=== PATIENT | female | born 1975 | race African-American/Black ===

== ENCOUNTER 2017-08-17 05:58 | Emergency (ER) | payer OTHER ==
[~2017-08-17] VITALS: Ht 157.5 cm; Wt 75.0 kg
[~2017-08-17 05:58] MED LIST: DIPH2%T PO; MACR100C PO; PYRI200T4 PO
[2017-08-17 06:01] VITALS: BP 156/76; PULSE 84; RESP 18; TEMP 97.7; O2SAT 100
[2017-08-17] MEDS ORDERED: SODIUM CHLOR 0.9% 1000 ML INJ 1,000 ML IV ONE (06:15)
[2017-08-17] MEDS ORDERED: SODIUM CHLORIDE 0.9% FLUSH 10 ML FLUSH IVF PRN (06:15)
--- NOTE | 2017-08-17 06:19 | PD ---
HPI Chief Complaint: Chest Pain Time Seen by Provider: 06:05 Travel History International Travel<30 days: No Contact w/Intl Traveler<30days: No Traveled to known affect area: No History of Present Illness HPI 42-year-old female arrives with complaints of chest pain. The location is left chest. There is radiation to the left shoulder. Patient describes chest discomfort as a constant tightness. Occasionally there is a pin like discomfort in the left chest. There is no exertional component. There is no pleuritic component. She has no history of hypertension hyperlipidemia or diabetes. There is no family history coronary artery disease. The patient does not smoke tobacco or drink alcohol. Patient has mild pain in the ED. The patient works nights and just finished her shift (time of dictation approximately 6:00). PFSH Past Medical History Asthma: Yes Hypertension: Yes (PI) ?: Not : 2 Para: 1 Past Surgical History Section: Yes Social History Alcohol Use: No Tobacco Use: No Substance Use: No Allergies-Medications (Allergen,Severity, Reaction): Coded Allergies: aspirin (Unverified Allergy, Severe, HIVES-WHEEZING, 08/17/17) ibuprofen (Unverified Allergy, Severe, HIVES, 08/17/17) monosodium glutamate (Unverified Allergy, Severe, HIVES AND SWELLING, 08/17) naproxen (Unverified Allergy, Severe, Hives, 08/17/17) Reported Meds & Prescriptions Reported Meds & Active Scripts Active Pyridium (Phenazopyridine HCl) 200 Mg Tab 200 Mg PO Q8 PRN Macrobid (Nitrofurantoin Macrocrystals) 100 Mg Cap 100 Mg PO BID 7 Days Reported Benadryl (Diphenhydramine HCl) 25 Mg Cap 25 Mg PO Q4HPRN Review of Systems Except as stated in HPI: all other systems reviewed are Neg General / Constitutional: No: Fever Physical Exam Narrative GENERAL: 42-year-old female pleasant well-nourished well-developed Vital Signs Date Time Temp Pulse Resp B/P (MAP) Pulse Ox O2 Delivery O2 Flow Rate FiO2 08/17/17 06:01 97.7 84 18 156/76 (102) 100 SKIN: Warm and dry. HEAD: Atraumatic. Normocephalic. EYES: Pupils equal and round. No scleral icterus. No injection or drainage. ENT: No nasal bleeding or discharge. Mucous membranes pink and moist. NECK: Trachea midline. No JVD. CARDIOVASCULAR: Regular rate and rhythm. RESPIRATORY: No accessory muscle use. Clear to auscultation. Breath sounds equal bilaterally. GASTROINTESTINAL: Abdomen soft, non-tender, nondistended. Hepatic and splenic margins not palpable. MUSCULOSKELETAL: Extremities without clubbing, cyanosis, or edema. No obvious deformities. NEUROLOGICAL: Awake and alert. No obvious cranial nerve deficits. Motor grossly within normal limits. Five out of 5 muscle strength in the arms and legs. Normal speech. PSYCHIATRIC: Appropriate mood and affect; insight and judgment normal. Data Data Last Documented VS Vital Signs Date Time Temp Pulse Resp B/P (MAP) Pulse Ox O2 Delivery O2 Flow Rate FiO2 08/17/17 08:35 Room Air 08/17/17 06:01 97.7 84 18 156/76 (102) 100 Orders Orders Electrocardiogram (08/17/17 06:13) Basic Metabolic Panel (Bmp) (08/17/17 06:13) Ckmb (Isoenzyme) Profile (08/17/17 06:13) Complete Blood Count With Diff (08/17/17 06:13) Magnesium (Mg) (08/17/17 06:13) Prothrombin Time / Inr (Pt) (08/17/17 06:13) Act Partial Throm Time (Ptt) (08/17/17 06:13) Troponin I (08/17/17 06:13) Ecg Monitoring (08/17/17 06:13) Bilateral Bp Monitoring (08/17/17 06:13) Iv Access Insert/Monitor (08/17/17 06:13) Oximetry (08/17/17 06:13) Oxygen Administration (08/17/17 06:13) Sodium Chloride 0.9% Flush (Ns Flush) (08/17/17 06:15) Chest, Single Ap (08/17/17 ) Sodium Chlor 0.9% 1000 Ml Inj (Ns 1000 M (08/17/17 06:15) Troponin I (08/17/17 08:13) CKMB (08/17/17 06:25) CKMB% (08/17/17 06:25) Ed Discharge Order (08/17/17 09:31) Labs Laboratory Tests Test 08/17/17 06:08/17/17 08:31 White Blood Count 9.2 TH/MM3 Red Blood Count 4.53 MIL/MM3 Hemoglobin 10.3 GM/DL Hematocrit 32.0 % Mean Corpuscular Volume 70.7 FL Mean Corpuscular Hemoglobin 22.7 PG Mean Corpuscular Hemoglobin Concent 32.2 % Red Cell Distribution Width 16.3 % Platelet Count 340 TH/MM3 Mean Platelet Volume 8.8 FL Neutrophils (%) (Auto) 64.7 % Lymphocytes (%) (Auto) 22.0 % Monocytes (%) (Auto) 8.0 % Eosinophils (%) (Auto) 4.7 % Basophils (%) (Auto) 0.6 % Neutrophils # (Auto) 6.0 TH/MM3 Lymphocytes # (Auto) 2.0 TH/MM3 Monocytes # (Auto) 0.7 TH/MM3 Eosinophils # (Auto) 0.4 TH/MM3 Basophils # (Auto) 0.1 TH/MM3 CBC Comment DIFF FINAL Differential Comment Prothrombin Time 10.7 SEC Prothromb Time International Ratio 1.1 RATIO Activated Partial Thromboplast Time 25.6 SEC Blood Urea Nitrogen 9 MG/DL Creatinine 0.71 MG/DL Random Glucose 93 MG/DL Calcium Level 8.6 MG/DL Magnesium Level 2.1 MG/DL Sodium Level 138 MEQ/L Potassium Level 3.6 MEQ/L Chloride Level 105 MEQ/L Carbon Dioxide Level 23.8 MEQ/L Anion Gap 9 MEQ/L Estimat Glomerular Filtration Rate 109 ML/MIN Total Creatine Kinase 210 U/L Creatine Kinase MB 0.8 NG/ML Creatine Kinase MB % 0.4 % Troponin I LESS THAN 0.02 NG/ML LESS THAN 0.02 NG/ML MDM Medical Decision Making Medical Screen Exam Complete: Yes Emergency Medical Condition: Yes Medical Record Reviewed: Yes Differential Diagnosis NSTEMI, unstable angina, coronary vasospasm, PE, PTX, aortic dissection, pericarditis, myocarditis, endocarditis, PNA, esophageal disease, aneurysm, musculoskeletal etiologies, anxiety, cocaine/sympathomimetic abuse Narrative Course Workup started at 6:17 AM. The patient will undergo a standard low risk chest pain evaluation. A 2 hour repeat troponin will be obtained. Patient prefers to defer chest pain center evaluation however does have follow-up with Dr. Newton and has attested to her intent to follow-up on Saturday to establish cardiology follow-up for stress test within the next week. EKG: sinus rate 82, no acute ischemic injury pattern Case discussed with Dr. Tracy at 7AM. Care turned over to Dr. Tracy at 7AM. Diagnosis Primary Impression: Chest pain Qualified Codes: R07.9 - Chest pain, unspecified Lobito Barton MD August 17, 2017 06:19
--- NOTE | 2017-08-17 06:37 | RADRPT ---
EXAM DATE/TIME: 08/17/2017 06:18 [facility] COMPARISON: No previous studies available for comparison. INDICATIONS : Chest pain. MEDICAL HISTORY : None. SURGICAL HISTORY : section. ENCOUNTER: Initial ACUITY: 2 days PAIN SCORE: 3/10 LOCATION: Left chest FINDINGS: A single view of the chest demonstrates the lungs to be symmetrically aerated without evidence of mas s, infiltrate or effusion. The cardiomediastinal contours are unremarkable. Osseous structures are intact. CONCLUSION: No acute disease. Valerio Bah MD on August 17, 2017 at 6:34 Board Certified Radiologist. This report was verified electronically.
[2017-08-17 06:53] LABS: BASOPHIL # 0.1 TH/MM3 (0-0.2); BASOPHIL % 0.6 % (0.0-2.0); EOSINOPHIL # 0.4 TH/MM3 (0-0.4); EOSINOPHIL % 4.7 % (0.0-4.0); HEMOGLOBIN 10.3 GM/DL (11.6-15.3); INTERNATIONAL NORMALIZED RATIO 1.1 RATIO; MEAN CELL VOLUME 70.7 FL (80.0-100.0); MEAN CORPUSCULAR HEMOGLOBIN 22.7 PG (27.0-34.0); MEAN CORPUSCULAR HGB CONC 32.2 % (32.0-36.0); MEAN PLATELET VOLUME 8.8 FL (7.0-11.0); MONOCYTE # 0.7 TH/MM3 (0-0.9); NEUT % 64.7 % (16.0-70.0); PLATELET COUNT 340 TH/MM3 (150-450); PROTHROMBIN TIME - PATIENT 10.7 SEC (9.8-11.6); RED BLOOD COUNT 4.53 MIL/MM3 (4.00-5.30); RED CELL DISTRIBUTION WIDTH 16.3 % (11.6-17.2); WHITE BLOOD COUNT 9.2 TH/MM3 (4.0-11.0)
[2017-08-17 07:05] LABS: BICARBONATE 23.8 MEQ/L (21.0-32.0); BLOOD UREA NITROGEN 9 MG/DL (7-18); CALCIUM 8.6 MG/DL (8.5-10.1); CHLORIDE 105 MEQ/L (98-107); CREATININE 0.71 MG/DL (0.50-1.00); GLOMERULAR FILTRATION RATE 109 ML/MIN (>89); GLUCOSE,RANDOM 93 MG/DL (74-106); MAGNESIUM 2.1 MG/DL (1.5-2.5); SODIUM (NA) 138 MEQ/L (136-145)
[2017-08-17 07:08] LABS: TROPONIN I LESS THAN 0.02 NG/ML (0.02-0.05)
--- NOTE | 2017-08-17 09:33 | PD ---
Physical Exam Date Seen by Provider: August 17, 2017 Narrative Care was assumed at 7 AM pending a repeat troponin. This is a young, healthy woman who presented with chest pain. She has no risk factors for coronary artery disease. Her initial workup was negative. Data Data Last Documented VS Vital Signs Date Time Temp Pulse Resp B/P (MAP) Pulse Ox O2 Delivery O2 Flow Rate FiO2 08/17/17 08:35 Room Air 08/17/17 06:01 97.7 84 18 156/76 (102) 100 Orders Orders Electrocardiogram (08/17/17:13) Basic Metabolic Panel (Bmp) (08/17/17:13) Ckmb (Isoenzyme) Profile (08/17/17:13) Complete Blood Count With Diff (08/17/17:13) Magnesium (Mg) (08/17/17:13) Prothrombin Time / Inr (Pt) (08/17/17:13) Act Partial Throm Time (Ptt) (08/17/17:13) Troponin I (08/17/17:13) Ecg Monitoring (08/17/17:13) Bilateral Bp Monitoring (08/17/17:13) Iv Access Insert/Monitor (08/17/17:13) Oximetry (08/17/17 06:13) Oxygen Administration (08/17/17:13) Sodium Chloride 0.9% Flush (Ns Flush) (08/17/17 06:15) Chest, Single Ap (08/17/17 ) Sodium Chlor 0.9% 1000 Ml Inj (Ns 1000 M (08/17/17 06:15) Troponin I (08/17/17 08:13) CKMB (08/17/17 06:25) CKMB% (08/17/17 06:25) Ed Discharge Order (08/17/17 09:31) Labs Laboratory Tests Test 08/17/17 06:25 08/17/17 08:31 White Blood Count 9.2 TH/MM3 Red Blood Count 4.53 MIL/MM3 Hemoglobin 10.3 GM/DL Hematocrit 32.0 % Mean Corpuscular Volume 70.7 FL Mean Corpuscular Hemoglobin 22.7 PG Mean Corpuscular Hemoglobin Concent 32.2 % Red Cell Distribution Width 16.3 % Platelet Count 340 TH/MM3 Mean Platelet Volume 8.8 FL Neutrophils (%) (Auto) 64.7 % Lymphocytes (%) (Auto) 22.0 % Monocytes (%) (Auto) 8.0 % Eosinophils (%) (Auto) 4.7 % Basophils (%) (Auto) 0.6 % Neutrophils # (Auto) 6.0 TH/MM3 Lymphocytes # (Auto) 2.0 TH/MM3 Monocytes # (Auto) 0.7 TH/MM3 Eosinophils # (Auto) 0.4 TH/MM3 Basophils # (Auto) 0.1 TH/MM3 CBC Comment DIFF FINAL Differential Comment Prothrombin Time 10.7 SEC Prothromb Time International Ratio 1.1 RATIO Activated Partial Thromboplast Time 25.6 SEC Blood Urea Nitrogen 9 MG/DL Creatinine 0.71 MG/DL Random Glucose 93 MG/DL Calcium Level 8.6 MG/DL Magnesium Level 2.1 MG/DL Sodium Level 138 MEQ/L Potassium Level 3.6 MEQ/L Chloride Level 105 MEQ/L Carbon Dioxide Level 23.8 MEQ/L Anion Gap 9 MEQ/L Estimat Glomerular Filtration Rate 109 ML/MIN Total Creatine Kinase 210 U/L Creatine Kinase MB 0.8 NG/ML Creatine Kinase MB % 0.4 % Troponin I LESS THAN 0.02 NG/ML LESS THAN 0.02 NG/ML MDM Supervised Visit with JENNIFER: No Narrative Course Patient is awake and alert and in no distress. Last Impressions Chest X-Ray 08/17/17 0000 Signed Impressions: Service Date/Time: Thursday, August 17, 2017 06:18 - CONCLUSION: No acute disease. Valerio Bah MD CBC & BMP Diagram 08/17/17 06:25 Calcium Level 8.6, Magnesium Level 2.1 Both troponins are less than 0.02. Diagnosis Primary Impression: Chest pain Qualified Codes: R07.9 - Chest pain, unspecified Patient Instructions: General Instructions Departure Forms: Tests/Procedures Additional Instruction: Follow-up with your primary care provider this coming week for further evaluation Disposition: 01 DISCHARGE HOME Condition: Stable Olga Tracy MD August 17, 2017 09:33
--- NOTE | 2017-08-17 18:14 | EKG ---
Date Performed: 08/17/2017 Time Performed: 06:18:15 PTAGE: 42 years EKG: Sinus rhythm POSSIBLE LEFT ATRIAL ENLARGEMENT POSSIBLE RIGHT VENTRICULAR CONDUCTION DELAY BORDERLINE ECG Since th e PREVIOUS TRACING , no significant change noted DOCTOR: Vance Jackson Interpretating Date/Time 08/17/2017 18:13:52
== END 2017-08-17 09:47 | disposition home or self-care (01) ==
LOC: NEPC 05:58
DX: J45.909 Unspecified asthma, uncomplicated (principal); I10 Essential (primary) hypertension; R07.89 Other chest pain; R94.31 Abnormal electrocardiogram [ECG] [EKG]; Z88.6 Allergy status to analgesic agent
CPT/HCPCS: 71045; 80048; 82550; 82552; 83735; 84484; 85025; 85610; 85730; 93005; 96360; 96361; 99285; J7030